=== PATIENT | male | born 1960 | race Caucasian/White ===

== ENCOUNTER → 2016-09-15 | Outpatient (CLI) | payer BC | LOC: FIMAGING 07:32 | PROVIDERS: ATTEND Physician Assistant | DX: R05 Cough (principal); R63.4 Abnormal weight loss ==

== ENCOUNTER → 2016-09-17 | Outpatient (CLI) | payer BC ==
--- NOTE | 2016-09-17 10:31 | DX ---
PA and Lateral Chest September 17, 2016 Indication: Cough. Unexplained weight loss. Comparison: None Findings: The lungs are clear except for minimal diffuse peribronchial thickening. No pulmonary nodul e, mass, emphysema or pulmonary fibrosis. Heart size is normal. No pulmonary edema or effusion. Minim al age-appropriate degenerative disk disease is present in the low thoracic spine. Impression: 1. Minimal airways disease/bronchitis. 2. No mass or explanation for weight loss.
== END ==
LOC: FIMAGING 09:51
PROVIDERS: ATTEND Physician Assistant
DX: J40 Bronchitis, not specified as acute or chronic (principal); R63.4 Abnormal weight loss